=== PATIENT | male | born 1985 | race African-American/Black ===

== ENCOUNTER 2018-06-08 12:38 | Inpatient (IN) | payer OTHER ==
--- NOTE | 2018-06-08 13:22 | HP ---
[facility] Rehab Assess/Revision - Admission History Admitted to Rehab from: [facility] Date of Admission to Rehab: 06/08/18 - Vital signs Vital Signs: Vital Signs Period Temp Pulse Resp BP Sys/Chaudhary Pulse Ox Last 24 Hr 98 F 81 20 121/66 - Findings Detox History & Physical reviewed: Yes Concur with findings: Yes Comments/Additional Findings: DETOX COMPLETED TODAY AND REFERRED TO [facility]. Inpatient Rehab Admission - Initial Determination Are CD services needed?: Yes Free of communicable disease: Yes Not in need of hospitalization: Yes - Rehab Admission Criteria Patient is meeting Inpatient Rehab admission criteria:: Yes
[2018-06-08] MEDS ORDERED: ACETAMINOPHEN 325 MG TABLET (FP) PO PRN (13:24)
[2018-06-08] MEDS ORDERED: MAG HYDROX/AL HYDROX/SIMETH 30 ML UNIT-DOSE CUP PO PRN (13:24)
[2018-06-08] MEDS ORDERED: MAGNESIUM HYDROX 2400MG/30ML ORAL SUSPENSION 30 ML CUP PO PRN (13:24)
[2018-06-08] MEDS ORDERED: guaiFENesin/D-METHORPHAN HB 10 ML UNIT-DOSE CUPS PO PRN (13:24)
[2018-06-08] MEDS ORDERED: MAGNESIUM CITRATE 300 ML BOTTLE PO PRN (13:24)
[2018-06-08] MEDS ORDERED: MENTHOL/PHENOL 1 EACH UD MM PRN (13:24)
[2018-06-08] MEDS ORDERED: hydrOXYzine PAMOATE 50 MG CAPSULE (FP) PO PRN (13:24)
[2018-06-08] MEDS ORDERED: LOPERAMIDE HCL 2 MG CAPSULE PO PRN (13:24)
[2018-06-08] MEDS ORDERED: NICOTINE POLACRILEX 2 MG GUM BUC PRN (13:24)
[2018-06-08] MEDS ORDERED: P-EPHED 60MG/TRIPROLIDI 2.5MG TABLET PO PRN (13:24)
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
[2018-06-08] MEDS: NICOTINE 14 MG/24 HOURS TOPICAL PATCH TD SCH (15:02)
[2018-06-08] MEDS: THIAMINE HCL 100 MG TABLET (FP) PO SCH (21:24)
[2018-06-08] MEDS ORDERED: MELATONIN 5 MG TABLETS PO PRN (22:00)
[2018-06-09] MEDS: IBUPROFEN 400 MG TABLET (FP) PO PRN (07:15)
[2018-06-09] MEDS: PRENATAL VITAMINS W/ FOLIC ACID TABLET (FP) PO SCH (09:57)
[2018-06-09] MEDS: NICOTINE 14 MG/24 HOURS TOPICAL PATCH TD SCH (09:57)
[2018-06-09] MEDS: BENZTROPINE MESYLATE 1 MG TABLET (FP) PO SCH (11:48)
--- NOTE | 2018-06-09 12:37 | PN ---
S Progress Note Note: Vital Signs Temperature 98.1 F 06/09/18 07:05 Pulse Rate 58 L 06/09/18 07:05 Respiratory Rate 18 06/09/18 07:05 Blood Pressure 118/70 06/09/18 07:05 O2 Sat by Pulse Oximetry (%) Laboratory Last Values HIV 1&2 Antibody Screen Negative 06/09/18 06:00 HIV P24 Antigen Negative 06/09/18 06:00 labs reviewed . 06/04/18 glucose 68. One time BGM check in the AM. Increase fluids continue to monitor
[2018-06-09] MEDS: THIAMINE HCL 100 MG TABLET (FP) PO SCH (21:25)
[2018-06-10] MEDS: IBUPROFEN 400 MG TABLET (FP) PO PRN (06:34)
[2018-06-10 07:01] VITALS: BP 102/64; PULSE 69; TEMP 98.6
[2018-06-10] MEDS: PRENATAL VITAMINS W/ FOLIC ACID TABLET (FP) PO SCH (10:01)
[2018-06-10] MEDS: NICOTINE 14 MG/24 HOURS TOPICAL PATCH TD SCH (10:03)
[2018-06-10] MEDS: BENZTROPINE MESYLATE 1 MG TABLET (FP) PO SCH (10:05)
== END 2018-06-10 19:30 | disposition left against medical advice (07) | DRG 770 ==
LOC: YASAS 12:38 → Y5N 12:40
PROVIDERS: ADMIT Psychiatry & Neurology Psychiatry; ATTEND Psychiatry & Neurology Psychiatry
PROC: HZ42ZZZ Group Counseling for Substance Abuse Treatment, Cognitive-Behavioral (ICD-10-PCS; principal; 2018-06-08)
DX: F11.20 Opioid dependence, uncomplicated (principal); F10.20 Alcohol dependence, uncomplicated; F14.20 Cocaine dependence, uncomplicated; F12.20 Cannabis dependence, uncomplicated; F17.210 Nicotine dependence, cigarettes, uncomplicated; F20.9 Schizophrenia, unspecified; Z59.0 Homelessness
CPT/HCPCS: 36415; 82962; 87389

== ENCOUNTER 2021-04-24 14:24 | Inpatient (IN) | payer OTHER ==
[2021-04-24 15:37] VITALS: BMI 25.2
[2021-04-24] MEDS ORDERED: MAGNESIUM CITRATE 300 ML BOTTLE PO PRN (15:44)
[2021-04-24] MEDS ORDERED: NICOTINE POLACRILEX 2 MG GUM BUC PRN (15:44)
[2021-04-24] MEDS ORDERED: LORazepam 1 MG TABLET PO PRN (15:44)
[2021-04-24] MEDS ORDERED: ONDANSETRON *ODT* 4 MG TABLET SL PRN (15:44)
[2021-04-24] MEDS ORDERED: MAGNESIUM HYDROX 2400MG/30ML ORAL SUSPENSION 30 ML CUP PO PRN (15:44)
[2021-04-24] MEDS ORDERED: MAG HYDROX/AL HYDROX/SIMETH 30 ML UNIT-DOSE CUP PO PRN (15:44)
[2021-04-24] MEDS ORDERED: MENTHOL/PHENOL 1 EACH UD MM PRN (15:44)
[2021-04-24] MEDS ORDERED: BISMUTH SUBSALICYLATE 524 MG/30 ML PO PRN (15:44)
[2021-04-24] MEDS ORDERED: IBUPROFEN 400 MG TABLET (FP) PO PRN (15:44)
[2021-04-24] MEDS ORDERED: ACETAMINOPHEN 325 MG TABLET (FP) PO PRN ×2 (15:44)
[2021-04-24] MEDS ORDERED: TUBERCULIN PPD 5 TU/0.1ML VIAL ID ONE (17:45)
[2021-04-24] MEDS: hydrOXYzine PAMOATE 25 MG CAPSULE (FP) PO SCH ×2 (17:51→23:07)
[2021-04-24] MEDS: LORazepam 2 MG TABLET PO SCH ×2 (17:51→23:08)
[2021-04-24] MEDS: NICOTINE 21 MG/24 HOURS TOPICAL PATCH TD SCH (17:57)
[2021-04-24] MEDS: THIAMINE HCL 100 MG TABLET (FP) PO SCH (23:07)
[2021-04-24] MEDS: MELATONIN 5 MG TABLETS PO SCH (23:07)
[2021-04-25] MEDS: LORazepam 2 MG TABLET PO SCH ×4 (07:50→22:01)
[2021-04-25] MEDS: hydrOXYzine PAMOATE 25 MG CAPSULE (FP) PO SCH (07:52)
[2021-04-25] MEDS: METHOCARBAMOL 500 MG TABLET PO PRN ×2 (07:52→22:00)
[2021-04-25] MEDS ORDERED: hydrOXYzine PAMOATE 25 MG CAPSULE (FP) PO PRN (09:08)
[2021-04-25] MEDS: PRENATAL VITAMINS W/ FOLIC ACID TABLET (FP) PO SCH (10:24)
[2021-04-25] MEDS: NICOTINE 21 MG/24 HOURS TOPICAL PATCH TD SCH (10:26)
[2021-04-25 10:28] LABS: HEMATOCRIT 40.4 % (35.4-49); HEMOGLOBIN 13.6 GM/dL (11.7-16.9); MCH 30.6 pg (25.7-33.7); MCHC 33.6 g/dl (32.0-35.9); MEAN CELL VOLUME 90.9 fl (80-96); MEAN PLT VOLUME 8.6 fl (7.5-11.1); PLATELET COUNT 188 K/MM3 (134-434); RBC 4.44 M/mm3 (4.00-5.60); RDW 13.4 % (11.9-15.9); WHITE BLOOD COUNT 4.9 K/mm3 (4.0-10.0)
[2021-04-25 10:37] LABS: CALCIUM 8.9 mg/dL (8.5-10.1)
[2021-04-25 10:38] LABS: ALBUMIN 3.5 g/dl (3.4-5.0)
[2021-04-25 10:41] LABS: CREATININE 0.9 mg/dL (0.55-1.3)
[2021-04-25 10:42] LABS: BILIRUBIN,TOTAL 1.5 mg/dL (0.2-1)
[2021-04-25 10:43] LABS: TOT PROT 6.4 g/dl (6.4-8.2)
[2021-04-25] MEDS: MELATONIN 5 MG TABLETS PO SCH (22:01)
[2021-04-25] MEDS: THIAMINE HCL 100 MG TABLET (FP) PO SCH (22:01)
[2021-04-26] MEDS: LORazepam 1 MG TABLET PO SCH ×2 (05:43→10:16)
[2021-04-26 09:08] VITALS: BP 109/63; PULSE 76; TEMP 97.1
[2021-04-26] MEDS ORDERED: ARIPiprazole 5 MG TABLET PO SCH (10:00)
[2021-04-26] MEDS: PRENATAL VITAMINS W/ FOLIC ACID TABLET (FP) PO SCH (10:15)
[2021-04-26] MEDS: NICOTINE 21 MG/24 HOURS TOPICAL PATCH TD SCH (10:16)
[2021-04-27] MEDS ORDERED: LORazepam 0.5 MG TABLET PO PRN
[2021-04-27] MEDS ORDERED: LORazepam 0.5 MG TABLET PO SCH (05:00)
[2021-04-28] MEDS ORDERED: LORazepam 0.5 MG TABLET PO ONE (05:00)
== END 2021-04-26 10:54 | disposition left against medical advice (07) | DRG 770 ==
LOC: YASAS 14:24 → Y3N 17:17
PROVIDERS: ADMIT Allergy & Immunology; ATTEND Allergy & Immunology
PROC: HZ2ZZZZ Detoxification Services for Substance Abuse Treatment (ICD-10-PCS; principal; 2021-04-24)
DX: F10.230 Alcohol dependence with withdrawal, uncomplicated (principal); F11.23 Opioid dependence with withdrawal; F14.20 Cocaine dependence, uncomplicated; F16.20 Hallucinogen dependence, uncomplicated; F12.20 Cannabis dependence, uncomplicated; F17.210 Nicotine dependence, cigarettes, uncomplicated; F20.9 Schizophrenia, unspecified; I10 Essential (primary) hypertension; E11.9 Type 2 diabetes mellitus without complications; J45.909 Unspecified asthma, uncomplicated; K21.9 Gastro-esophageal reflux disease without esophagitis; Z91.5 Personal history of self-harm; Z87.81 Personal history of (healed) traumatic fracture; Z88.8 Allergy status to other drugs, medicaments and biological substances; Z91.14 Patient's other noncompliance with medication regimen; Z59.0 Homelessness
CPT/HCPCS: 36415; 80053; 85027; 86780; C9803; U0003; U0005